=== PATIENT | female | born 1985 | race American Indian/Alaskan Native ===

== ENCOUNTER 2017-01-06 12:06 | Emergency (ER) | payer OTHER ==
[2017-01-06 12:27] VITALS: BP 147/107; PULSE 83; RESP 20; TEMP 98; O2SAT 100
--- NOTE | 2017-01-06 13:22 | C.PDOC ---
History Of Present Illness Pt c/o rash on body. Time Seen by Provider: 01/06/17 13:07 Chief Complaint (Nursing): Abnormal Skin Integrity History Per: Patient Onset/Duration Of Symptoms: Days (about 1 week) Current Symptoms Are (Timing): Still Present Quality Of Symptoms: Itching Severity: Moderate Additional History Per: Prior Records Past Medical History Reviewed: Historical Data, Nursing Documentation, Vital Signs Vital Signs: Last Vital Signs Temp 98.0 F 01/06/17 12:27 Pulse 83 01/06/17 12:27 Resp 20 01/06/17 12:27 BP 147/107 H 01/06/17 12:27 Pulse Ox 100 01/06/17 12:27 - Medical History PMH: No Chronic Diseases - [facility] Procedures OTHER SKIN & SUBQ I D (06/01/14) TETANUS TOXOID ADMINIST (06/01/14) Family History: States: Unknown Family Hx - Social History Hx Tobacco Use: Yes Hx Alcohol Use: Yes Hx Substance Use: No - Immunization History Hx Tetanus Toxoid Vaccination: Yes Hx Influenza Vaccination: No Hx Pneumococcal Vaccination: No Review Of Systems Except As Marked, All Systems Reviewed And Found Negative. Constitutional: Negative for: Fever, Weakness ENT: Negative for: Mouth Pain, Mouth Swelling, Throat Pain, Throat Swelling Respiratory: Negative for: Cough, Shortness of Breath Gastrointestinal: Negative for: Vomiting, Abdominal Pain Musculoskeletal: Negative for: Neck Pain Skin: Positive for: Rash, Lesions Neurological: Negative for: Weakness, Numbness, Seizures, Altered Mental Status , Headache Physical Exam - Physical Exam Appears: Non-toxic, No Acute Distress Skin: Normal Color, Warm, Dry, Rash (dry scaly patches on trunk. Abscent on palms and soles. ) Head: Atraumatic, Normacephalic Eye(s): bilateral: Normal Inspection, PERRL, EOMI Oral Mucosa: Moist, No Drooling, No Trismus Throat: Normal Neck: Normal ROM, Supple Lymphatic: No Adenopathy Cardiovascular: Rhythm Regular Respiratory: Normal Breath Sounds, No Accessory Muscle Use Gastrointestinal/Abdominal: Soft, No Tenderness Back: No CVA Tenderness Extremity: Normal ROM, No Pedal Edema Neurological/Psych: Oriented x3, Normal Speech, Normal Cognition, Normal Motor, Normal Sensation ED Course And Treatment O2 Sat by Pulse Oximetry: 100 Pulse Ox Interpretation: Normal Medical Decision Making Medical Decision Making: MO vs. Tinea. Disposition Counseled Patient/Family Regarding: Diagnosis, Need For Followup, Rx Given - Disposition Referrals: Shoshana Calvo MD [Non-Staff] - Disposition: HOME/ ROUTINE Disposition Time: 13:23 Condition: STABLE Additional Instructions: Follow up with your doctor. Return to the ER if you develop fever, mouth sores, lethargy, shortness of breath, worsening of symptoms or if you have any other concerns. Prescriptions: Clotrimazole 1% Cream [Lotrimin 1%] 1 applic EXT BID #1 tube Instructions: Pityriasis rosea (ED), Tinea Corporis (ED) - Clinical Impression Clinical Impression: Pityriasis rosea-like skin eruption
== END 2017-01-06 13:45 | disposition home or self-care (01) ==
LOC: C.ER 12:06
DX: L42 Pityriasis rosea (principal)

== ENCOUNTER 2017-11-26 15:59 | Emergency (ER) | payer OTHER ==
--- NOTE | 2017-11-26 19:30 | C.PDOC ---
History Of Present Illness 32 y/o female presents to the ER complaining of nausea, vomiting, and diarrhea which has been present for the past few days. Patient states that she is not able to tolerate PO. Patient reports that she also has a headache and she rates the pain 4/10 on the pain scale. Time Seen by Provider: 11/26/17 19:29 Chief Complaint (Nursing): GI Problem History Per: Patient History/Exam Limitations: no limitations Onset/Duration Of Symptoms: Hrs Severity: Moderate Past Medical History Reviewed: Historical Data, Nursing Documentation, Vital Signs Vital Signs: Last Vital Signs Temp 98.2 F 11/26/17 16:58 Pulse 78 11/26/17 16:58 Resp 18 11/26/17 16:58 BP 125/86 11/26/17 16:58 Pulse Ox 98 11/26/17 21:31 - Medical History PMH: Depression Other Surgeries: Hx of surgeries - [facility] Procedures OTHER SKIN & SUBQ I D (06/01/14) TETANUS TOXOID ADMINIST (06/01/14) Family History: States: No Known Family Hx - Social History Hx Tobacco Use: Yes Hx Alcohol Use: Yes Hx Substance Use: No - Immunization History Hx Tetanus Toxoid Vaccination: Yes Hx Influenza Vaccination: No Hx Pneumococcal Vaccination: No Review Of Systems Gastrointestinal: Positive for: Nausea, Vomiting, Diarrhea Neurological: Positive for: Headache Physical Exam - Physical Exam Appears: Non-toxic, No Acute Distress Skin: Warm Head: Normacephalic Eye(s): bilateral: Normal Inspection Oral Mucosa: Dry Gastrointestinal/Abdominal: Soft, Tenderness (mild midepigastric tenderness) Neurological/Psych: Oriented x3, Normal Speech, Normal Motor, Normal Sensation ED Course And Treatment - Laboratory Results Result Diagrams: 11/26/17 21:31 11/26/17 21:31 O2 Sat by Pulse Oximetry: 98 (RA) Pulse Ox Interpretation: Normal Progress Note: HCG and UA ordered. Reevaluation Time: 22:18 Reassessment Condition: Improved Disposition Counseled Patient/Family Regarding: Studies Performed, Diagnosis, Need For Followup, Rx Given - Disposition Referrals: [facility] [Outside] [facility] [Outside] Disposition: HOME/ ROUTINE Disposition Time: 19:29 Condition: FAIR Prescriptions: Ondansetron ODT [Zofran ODT] 1 odt PO BID PRN #6 odt PRN Reason: Nausea/Vomiting Instructions: Nausea and Vomiting, Adult Forms: [facility] (Slovenian), Work Excuse - Clinical Impression Clinical Impression: Abdominal pain, Nausea, Vomiting, Diarrhea - Scribe Statement The provider has reviewed the documentation as recorded by the Scribe Roberto Carlos Krishnan Provider Attestation: All medical record entries made by the Scribe were at my direction and personally dictated by me. I have reviewed the chart and agree that the record accurately reflects my personal performance of the history, physical exam, medical decision making, and the department course for this patient. I have also personally directed, reviewed, and agree with the discharge instructions and disposition.
[2017-11-26 20:31] LABS: HCG,QUALITATIVE URINE NEGATIVE (NEGATIVE)
[2017-11-26 20:33] LABS: SQUAMOUS EPITHIAL 6 /hpf (0-5); URINE BACTERIA RARE (<OCC); URINE BILIRUBIN NEGATIVE (NEGATIVE); URINE BLOOD NEGATIVE (NEGATIVE); URINE CLARITY Clear (Clear); URINE COLOR Yellow (YELLOW); URINE GLUCOSE (UA) NORMAL (Normal); URINE NITRATE NEGATIVE (NEGATIVE); URINE PROTEIN NEGATIVE (NEGATIVE); URINE UROBILINOGEN NORMAL mg/dL (0.2-1.0)
[2017-11-26 20:34] LABS: URINE LEUKOCYTE ESTERASE NEGATIVE Leu/uL (Negative)
[2017-11-26] MEDS ORDERED: Sodium Chloride 0.9% 1,000 ML IV ONE (20:36)
[2017-11-26] MEDS ORDERED: Sodium Chloride 0.9% 1,000 ML ONE (21:14)
[2017-11-26 21:44] LABS: BASO # 0.1 K/uL (0.0-0.2); EOS # 0.1 K/uL (0.0-0.7); EOS % 1.4 % (0.0-4.0); HEMOGLOBIN 12.8 g/dL (11.0-16.0); LYMPH # 3.4 K/uL (1.0-4.3); LYMPH % 42.4 % (20.0-40.0); MEAN CELL VOLUME 92.4 fL (81.0-99.0); MEAN CORPUSCULAR HEMOGLOBIN 31.2 pg (27.0-31.0); MEAN CORPUSCULAR HGB CONC 33.8 g/dL (33.0-37.0); MEAN PLATELET VOLUME 8.8 fL (7.2-11.7); MONO # 1.1 K/uL (0.0-0.8); NEUT # 3.3 K/uL (1.8-7.0); NEUT % 41.2 % (50.0-75.0); NRBC % 0.1 % (0.0-2.0); RBC 4.11 Mil/uL (3.80-5.20); RED CELL DISTRIBUTION WIDTH 13.4 % (11.5-14.5)
[2017-11-26 21:48] LABS: ALBUMIN 4.2 g/dL (3.5-5.0); CALCIUM 9.3 mg/dl (8.6-10.4); GFR AFRICAN-AMERICAN > 60; GFR NON-AFRICAN AMERICAN > 60; LIPASE 107 U/L (23-300)
[2017-11-26 22:00] LABS: ALT/SGPT 21 U/L (9-52); AST/SGOT 28 U/L (14-36); BLOOD UREA NITROGEN 11 mg/dL (7-17)
[2017-11-26 23:30] VITALS: BP 125/87; PULSE 71; RESP 20; TEMP 97.9; O2SAT 99
== END 2017-11-26 23:30 | disposition home or self-care (01) ==
LOC: C.ER 15:59
DX: R19.7 Diarrhea, unspecified (principal); R11.2 Nausea with vomiting, unspecified; R10.9 Unspecified abdominal pain; Z72.0 Tobacco use
CPT/HCPCS: 80053; 81001; 83690; 84703; 85025; 96361; 96374; 96375; 99283; J1885; J2405; J7040

== ENCOUNTER 2018-02-20 13:52 | Emergency (ER) | payer OTHER ==
[2018-02-20 14:05] VITALS: TEMP 99.6; BMI 29.2
--- NOTE | 2018-02-20 14:23 | C.PDOC ---
History Of Present Illness 32 year old female presents to the ED for evaluation of sore throat since yesterday. Patient reports vomiting and diarrhea this morning. Denies fever, sick contacts, or other associated symptoms. SORE THROAT SINCE YEST, VD THIS MORNING. NO FEVER, SICK CONTACTS. NO OTHER ASSOC SX EXAM NONTOXIC HEENT +PHARYNX ERYTHEMA W EXUDATES. NO DROOL, STRIDOR. ABD NEG GOOD TURGOR REMAINDER NEG Time Seen by Provider: 02/20/18 13:58 History Per: Patient History/Exam Limitations: no limitations Onset/Duration Of Symptoms: Hrs Current Symptoms Are (Timing): Still Present Additional History Per: Patient Past Medical History Reviewed: Historical Data, Nursing Documentation, Vital Signs Vital Signs: Last Vital Signs Temp 99.6 F 02/20/18 14:00 Pulse 72 02/20/18 14:43 Resp 18 02/20/18 14:43 BP 118/70 02/20/18 14:43 Pulse Ox 99 02/20/18 15:22 - Medical History PMH: Depression Surgical History: No Surg Hx - [facility] Procedures OTHER SKIN & SUBQ I D (06/01/14) TETANUS TOXOID ADMINIST (06/01/14) Family History: States: Unknown Family Hx - Social History Hx Tobacco Use: Yes Hx Alcohol Use: Yes Hx Substance Use: No - Immunization History Hx Tetanus Toxoid Vaccination: Yes Hx Influenza Vaccination: No Hx Pneumococcal Vaccination: No Review Of Systems Constitutional: Negative for: Fever, Chills ENT: Positive for: Throat Pain Gastrointestinal: Positive for: Vomiting, Diarrhea Physical Exam - Physical Exam Appears: Non-toxic, No Acute Distress Skin: Normal Color, Warm, Dry, Other (good turgor ) Head: Atraumatic, Normacephalic Eye(s): bilateral: Normal Inspection Ear(s): Bilateral: Normal Nose: Normal, No Discharge Oral Mucosa: Moist Throat: Erythema, Exudate, No Drooling, No Other (stridor ) Neck: Supple Chest: Symmetrical, No Deformity, No Tenderness Cardiovascular: Rhythm Regular, No Murmur Respiratory: Normal Breath Sounds, No Rales, No Rhonchi, No Wheezing Gastrointestinal/Abdominal: Soft, No Tenderness, No Guarding, No Rebound Extremity: Normal ROM, Capillary Refill (less than 2 seconds ) Neurological/Psych: Oriented x3, Normal Speech, Normal Cognition ED Course And Treatment O2 Sat by Pulse Oximetry: 99 (on RA) Pulse Ox Interpretation: Normal Progress Note: Motrin PO, Tylenol PO and Zofran PO administered. Disposition Counseled Patient/Family Regarding: Diagnosis, Need For Followup, Rx Given - Disposition Referrals: [facility] [Outside] [facility] [Outside] Disposition: HOME/ ROUTINE Disposition Time: 14:19 Condition: GOOD Prescriptions: Cephalexin [cephalexin] 500 mg PO BID #20 cap Instructions: Sore Throat, Adult (DC), Viral Gastroenteritis, Adult (DC) Forms: Work Excuse - Clinical Impression Clinical Impression: Acute pharyngitis, Vomiting and diarrhea - Scribe Statement The provider has reviewed the documentation as recorded by the Scribe (Jessica Patricia) Provider Attestation: All medical record entries made by the Scribe were at my direction and personally dictated by me. I have reviewed the chart and agree that the record accurately reflects my personal performance of the history, physical exam, medical decision making, and the department course for this patient. I have also personally directed, reviewed, and agree with the discharge instructions and disposition. Addendum Addendum: 02/20/18 15:23 PS UNABLE TO FILL AZITHROMYCIN RX. PER [facility], UNABLE TO FILL RX DUE TO PT'S INSURANCE DENIAL. PT OFFERED KEFLEX, RISKS BENEFITS DISCUSSED LOW LIKELIHOOD ALLERGIC REACTION. OFFERED CLINDAMYCIN AND ADVISED OF POTENTIAL FOR MED SIDE EFFECTS INCLUDING GI SX. PT VOICES VERBAL UNDERSTANDING, PREFERS KEFLEX. NEW RX GIVEN.
[2018-02-20 14:44] VITALS: BP 118/70; PULSE 72; RESP 18
[2018-02-20 15:22] VITALS: O2SAT 99
== END 2018-02-20 14:43 | disposition home or self-care (01) ==
LOC: C.ER 13:52
DX: J02.9 Acute pharyngitis, unspecified (principal); R11.10 Vomiting, unspecified; R19.7 Diarrhea, unspecified

== ENCOUNTER 2018-07-28 16:34 | Emergency (ER) | payer OTHER ==
[2018-07-28 16:40] VITALS: BMI 29.9
[2018-07-28 16:41] VITALS: BP 132/89; O2SAT 97
--- NOTE | 2018-07-28 16:49 | C.PDOC ---
History Of Present Illness 33 year old female presents to the ED for evaluation of glass stuck in her foot s/p injury 2 days ago. Patient reports a piece of glass fell onto her foot, cutting the left side of her ankle and the 2nd toe. She presents to rule out infection and retained glass. Last Tetanus vaccination. Denies other injuries, fever, numbness, tingling, and any other associated symptoms. Time Seen by Provider: 07/28/18 16:39 Chief Complaint (Nursing): Lower Extremity Problem/Injury History Per: Patient History/Exam Limitations: no limitations Onset/Duration Of Symptoms: Days Current Symptoms Are (Timing): Still Present Past Medical History Reviewed: Historical Data, Nursing Documentation, Vital Signs Vital Signs: Last Vital Signs Temp 98.0 F 07/28/18 16:40 Pulse 114 H 07/28/18 16:40 Resp 20 07/28/18 16:40 BP 132/89 07/28/18 16:40 Pulse Ox 97 07/28/18 16:40 - Medical History PMH: Depression - [facility] Procedures OTHER SKIN & SUBQ I D (06/01/14) TETANUS TOXOID ADMINIST (06/01/14) Family History: States: Unknown Family Hx - Social History Hx Tobacco Use: Yes Hx Alcohol Use: Yes Hx Substance Use: No - Immunization History Hx Tetanus Toxoid Vaccination: Yes Hx Influenza Vaccination: No Hx Pneumococcal Vaccination: No Review Of Systems Constitutional: Negative for: Fever, Other (other injuries) Skin: Positive for: Other (laceration to the left side of the ankle. laceration to the 2nd toe. ) Neurological: Negative for: Weakness, Numbness, Incoordination Physical Exam - Physical Exam Appears: Well, Non-toxic Skin: Warm, Dry, Other (1 cm laceration to the lateral malleolous: well healing. no discharge. no erythema. 0.5 cm laceration to the underside of the right 2nd toe. ) Head: Atraumatic, Normacephalic Eye(s): bilateral: Normal Inspection Extremity: Normal ROM (x4), No Tenderness, No Calf Tenderness, Capillary Refill (less than 2 seconds.), No Deformity Pulses: Left Dorsalis Pedis: Normal, Right Dorsalis Pedis: Normal Neurological/Psych: Oriented x3, Normal Speech, Normal Motor, Normal Sensation, Normal Reflexes ED Course And Treatment O2 Sat by Pulse Oximetry: 97 (RA) Pulse Ox Interpretation: Normal - Other Rad LT Ankle X-ray X-Ray: Viewed By Me, Read By Radiologist Interpretation: FINDINGS: BONES: No acute fracture. JOINTS: Ankle mortise maintained. SOFT TISSUES: Normal. OTHER FINDINGS: None. IMPRESSION: No demonstrated fracture, dislocation or evidence of radiopaque foreign body. LT Foot X-ray X-Ray: Viewed By Me, Read By Radiologist Interpretation: FINDINGS: BONES: No acute fracture. JOINTS: Ankle mortise maintained. SOFT TISSUES: Normal. OTHER FINDINGS: None. IMPRESSION: No demonstrated fracture, dislocation or evidence of radiopaque foreign body. Medical Decision Making Medical Decision Making: Plan: -LF X-ray Tetanus LF Ankle X-ray LT Foot X-ray No foreign body appreciated near L lateral malleolus or 2nd toe. Instructed that if there was foreign body it would work its way out. Tetanus updated and wound cleaned. Wounds appear well healing and not infected Disposition - Disposition Disposition: HOME/ ROUTINE Disposition Time: 17:55 Condition: GOOD Additional Instructions: Follow-up with PMD within 2 days. Return to ED if condition worsens. Keep wound clean. Instructions: Toe Injury Forms: [facility] (Turkmen), Work Excuse - Clinical Impression Clinical Impression: Foot laceration - Scribe Statement The provider has reviewed the documentation as recorded by the Scribe (Christen Sanderson) Provider Attestation: All medical record entries made by the Scribe were at my direction and personally dictated by me. I have reviewed the chart and agree that the record accurately reflects my personal performance of the history, physical exam, medical decision making, and the department course for this patient. I have also personally directed, reviewed, and agree with the discharge instructions and disposition.
[2018-07-28 16:50] VITALS: RESP 18; TEMP 98
[2018-07-28] MEDS ORDERED: Tdap Vaccine 0.5 ml Vial (10-64 yrs) IM ONE ×2 (16:58→17:07)
[2018-07-28] MEDS ORDERED: Bacitracin 500 Units/gm Oint Foilpak UD TOP ONE (17:54)
[2018-07-28] MEDS ORDERED: Bacitracin 500 Units/gm Oint Foilpak UD ONE (18:02)
[2018-07-28 18:05] VITALS: PULSE 92
--- NOTE | 2018-07-28 18:19 | RAD ---
Date of service: 07/28/2018 PROCEDURE: Left Ankle Radiographs. Left Foot Radiographs. HISTORY: glass fell, eval for fb COMPARISON: None. FINDINGS: BONES: No acute fracture. JOINTS: Ankle mortise maintained. SOFT TISSUES: Normal. OTHER FINDINGS: None. IMPRESSION: No demonstrated fracture, dislocation or evidence of radiopaque foreign body.
== END 2018-07-28 18:05 | disposition home or self-care (01) ==
LOC: C.ER 16:34
DX: S91.312A Laceration without foreign body, left foot, initial encounter (principal); W25.XXXA Contact with sharp glass, initial encounter; Z23 Encounter for immunization; Z72.0 Tobacco use

== ENCOUNTER 2018-09-03 10:35 | Emergency (ER) | payer OTHER ==
[2018-09-03 10:36] VITALS: BMI 29.9
[2018-09-03] MEDS ORDERED: Sodium Chloride 0.9% 1,000 ML IV ONE (11:31)
--- NOTE | 2018-09-03 11:31 | C.PDOC ---
History Of Present Illness 33 year old female with no PMH presents to the ED for evaluation of nasal congestion, nausea, and diarrhea x 3 days. The patient reports 1 episode of vomiting 3 days ago, and 2-3 episodes of non-bloody brown diarrhea over the last 3 days. She admits to taking an unknown OTC medication for the nasal congestion without relief. Denies fever, cough, sore throat, recent antibiotics, flu vaccine, abdominal pain, back pain, decrease in appetite, urinary symptoms, numbness, tingling, headache, neck pain, and any other associated symptoms. Chief Complaint (Nursing): GI Problem History Per: Patient History/Exam Limitations: no limitations Onset/Duration Of Symptoms: Days (x1) Current Symptoms Are (Timing): Still Present Recent travel outside of the [place]: No Past Medical History Reviewed: Historical Data, Nursing Documentation, Vital Signs Vital Signs: Last Vital Signs Temp 98.4 F 09/03/18 10:37 Pulse 84 09/03/18 10:37 Resp 8 L 09/03/18 10:37 BP 144/94 H 09/03/18 10:37 Pulse Ox 100 09/03/18 10:37 - Medical History PMH: Depression - [facility] Procedures OTHER SKIN & SUBQ I D (06/01/14) TETANUS TOXOID ADMINIST (06/01/14) Family History: States: Unknown Family Hx - Social History Hx Tobacco Use: Yes Hx Alcohol Use: Yes Hx Substance Use: No - Immunization History Hx Tetanus Toxoid Vaccination: Yes Hx Influenza Vaccination: No Hx Pneumococcal Vaccination: No Review Of Systems Except As Marked, All Systems Reviewed And Found Negative. Constitutional: Positive for: Chills. Negative for: Fever, Other (decrease in appetite. ) ENT: Positive for: Nose Congestion. Negative for: Throat Pain (sore. ) Respiratory: Positive for: Other (tight chest. ). Negative for: Cough Gastrointestinal: Positive for: Nausea, Vomiting, Diarrhea. Negative for: Abdominal Pain Genitourinary: Negative for: Dysuria, Frequency, Incontinence Musculoskeletal: Negative for: Back Pain Neurological: Negative for: Weakness, Numbness Physical Exam - Physical Exam Appears: Well, Non-toxic, No Acute Distress Skin: Normal Color, Warm, Dry Head: Atraumatic, Normacephalic Eye(s): bilateral: Normal Inspection Ear(s): Bilateral: Normal Nose: Normal, No Flaring Oral Mucosa: Moist Throat: Normal, No Erythema, No Exudate Neck: Normal ROM, Supple Chest: Symmetrical, No Deformity Cardiovascular: Rhythm Regular, No Murmur Respiratory: Normal Breath Sounds, No Rales, No Rhonchi, No Wheezing Gastrointestinal/Abdominal: Normal Exam, Soft, No Tenderness Extremity: Normal ROM (x4) Neurological/Psych: Oriented x3, Normal Speech, Normal Cognition ED Course And Treatment - Laboratory Results Result Diagrams: 09/03/18 11:55 09/03/18 11:55 O2 Sat by Pulse Oximetry: 100 (RA) Pulse Ox Interpretation: Normal - Other Rad ABD Obstructive X-ray X-Ray: Viewed By Me, Read By Radiologist Interpretation: FINDINGS: CHEST: Lungs: The lungs are well inflated and clear. Cardiovascular: Normal size heart. No pulmonary vascular congestion. No aortic atherosclerotic calcification present. Pleura: No pleural fluid. No pneumothorax. Other findings: None. ABDOMEN AND PELVIS: Bowel: The bowel gas pattern is nonobstructive and nonspecific. No evidence of mechanical obstruction. Free air: None. Bones: Unremarkable. Other findings: None. IMPRESSION: Nonspecific nonobstructive bowel gas pattern. Clear lungs. Medical Decision Making Medical Decision Making: Initial plan: -Obstructive series CBC, CMP Zofran Urinalysis Progress/Update: Obstructive series negative for any acute findings Labwork unremarkable Patient feels much better after fluid infusion. Requesting to be discharged home. Offered to be tested for flu, patient refuses, states she will return if she gets worse. Case discussed with ED attending, Dr. Whelan, who recommends Zofran prescription for home. Plan of care discussed with patient, and strict instructions given regarding prescriptions, importance of follow up, and signs to return to Emergency Department, to include fever, chills, abdominal pain, or any other new/worsening symptoms. Patient verbalizes understanding of discussion. Patient A&Ox3, ambulating with steady gait, stable for discharge home. Disposition - Disposition Referrals: [facility] [Outside] Disposition: HOME/ ROUTINE Disposition Time: 14:00 Condition: IMPROVED Additional Instructions: Take zofran every 8 hours as needed for nausea Followup with primary doctor within 2 days Return to ER with new/worsening symptoms Prescriptions: Ondansetron ODT [Zofran ODT] 4 mg PO Q8H PRN #6 odt PRN Reason: Nausea/Vomiting Instructions: Diarrhea in Adolescents and Adults, Nausea and Vomiting, Adult (DC) Forms: [facility] (Danish), Work Excuse - Clinical Impression Clinical Impression: Diarrhea, Nausea & vomiting - PA / [employer] / Resident Statement MD/DO has reviewed & agrees with the documentation as recorded. - Scribe Statement The provider has reviewed the documentation as recorded by the Scribe (Christen Sanderson) All medical record entries made by the Scribe were at my direction and personally dictated by me. I have reviewed the chart and agree that the record accurately reflects my personal performance of the history, physical exam, medical decision making, and the department course for this patient. I have also personally directed, reviewed, and agree with the discharge instructions and disposition.
[2018-09-03 12:05] LABS: BASO # 0.1 K/uL (0.0-0.2); BASO % 1.1 % (0.0-2.0); EOS # 0.1 K/uL (0.0-0.7); EOS % 1.5 % (0.0-4.0); HEMOGLOBIN 13.8 g/dL (11.0-16.0); LYMPH # 1.4 K/uL (1.0-4.3); LYMPH % 30.9 % (20.0-40.0); MEAN CORPUSCULAR HEMOGLOBIN 31.7 pg (27.0-31.0); MEAN CORPUSCULAR HGB CONC 33.3 g/dL (33.0-37.0); MONO # 0.5 K/uL (0.0-0.8); MONO % 10.6 % (0.0-10.0); NEUT # 2.6 K/uL (1.8-7.0); NEUT % 55.9 % (50.0-75.0); NRBC % 0.1 % (0.0-2.0); RBC 4.35 Mil/uL (3.80-5.20); RED CELL DISTRIBUTION WIDTH 14.5 % (11.5-14.5); WHITE BLOOD COUNT 4.6 K/uL (4.8-10.8)
[2018-09-03 12:09] LABS: MEAN CELL VOLUME 95.2 fL (81.0-99.0)
[2018-09-03 12:14] LABS: SQUAMOUS EPITHIAL 21 /hpf (0-5); URINE BACTERIA RARE (<OCC); URINE BILIRUBIN 1+ (NEGATIVE); URINE BLOOD 1+ (NEGATIVE); URINE CLARITY Hazy (Clear); URINE COLOR Yellow (YELLOW); URINE GLUCOSE (UA) NORMAL (Normal); URINE HYALINE CAST 0-2 /lpf (0-2); URINE LEUKOCYTE ESTERASE NEG Leu/uL (Negative); URINE PROTEIN 1+ mg/dL (NEGATIVE)
[2018-09-03 12:16] LABS: ALB/GLOB RATIO 1.1 (1.0-2.1); ALBUMIN 4.5 g/dL (3.5-5.0); ALT/SGPT 30 U/L (9-52); AST/SGOT 34 U/L (14-36); BLOOD UREA NITROGEN 4 mg/dL (7-17); CALCIUM 9.1 mg/dl (8.6-10.4); GFR NON-AFRICAN AMERICAN > 60; LIPASE 62 U/L (23-300)
[2018-09-03 14:35] VITALS: BP 118/83; PULSE 79; RESP 16; TEMP 98.9
--- NOTE | 2018-09-03 15:11 | RAD ---
Date of service: 09/03/2018 PROCEDURE: Radiographs of the chest and abdomen (obstructive series) HISTORY: abdominal pain, diarrhea COMPARISON: No prior. TECHNIQUE: AP radiograph of the chest, with upright and supine radiographs of the abdomen. FINDINGS: CHEST: Lungs: The lungs are well inflated and clear. Cardiovascular: Normal size heart. No pulmonary vascular congestion. No aortic atherosclerotic calcification present Pleura: No pleural fluid. No pneumothorax. Other findings: None. ABDOMEN AND PELVIS: Bowel: The bowel gas pattern is nonobstructive and nonspecific. No evidence of mechanical obstruction. Free air: None. Bones: Unremarkable. Other findings: None. IMPRESSION: Nonspecific nonobstructive bowel gas pattern. Clear lungs.
[2018-09-03 15:17] VITALS: O2SAT 100
== END 2018-09-03 14:35 | disposition home or self-care (01) ==
LOC: C.ER 10:35
DX: R19.7 Diarrhea, unspecified (principal); R11.2 Nausea with vomiting, unspecified; Z72.0 Tobacco use
CPT/HCPCS: 74022; 80053; 81001; 83690; 85025; 87086; 87804; 96374; 99285; J2405; J7030

== ENCOUNTER 2019-02-23 21:38 | Emergency (ER) | payer OTHER ==
[2019-02-23 21:38] VITALS: BMI 29.9
[2019-02-23 22:06] VITALS: BP 109/82; PULSE 90; RESP 20; TEMP 98.6; O2SAT 100
--- NOTE | 2019-02-23 22:19 | C.PDOC ---
History Of Present Illness 33 yo female presents to the ED complaining of pain to the right upper back/shoulder area. Patient states pain started this morning. Describes pain as an ache, constant and nonradiating. Pain is worsened with movement and touching the area and it is relieved with rest. States if she touches the area "it feels hard and swollen." Explains she took naprosyn which made her tired but did not help her pain. Patient denies chest pain or SOB. No numbness, tingling, neck pain or headache. Denies weakness. 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 She is right handed. No other complaints at this time. Time Seen by Provider: 02/23/19 22:09 Chief Complaint (Nursing): Upper Extremity Problem/Injury History Per: Patient History/Exam Limitations: no limitations Past Medical History Reviewed: Historical Data, Nursing Documentation Vital Signs: Last Vital Signs Temp 98.6 F 02/23/19 21:47 Pulse 90 02/23/19 21:47 Resp 20 02/23/19 21:47 BP 109/82 02/23/19 21:47 Pulse Ox 100 02/23/19 21:47 Primary Care Provider: Non [facility] Provider, - Medical History PMH: Depression - [facility] OTHER SKIN & SUBQ I D (06/01/14) TETANUS TOXOID ADMINIST (06/01/14) Family History: States: Unknown Family Hx - Social History Hx Tobacco Use: Yes Hx Alcohol Use: Yes Hx Substance Use: No - Immunization History Hx Tetanus Toxoid Vaccination: Yes Hx Influenza Vaccination: No Hx Pneumococcal Vaccination: No Review Of Systems Except As Marked, All Systems Reviewed And Found Negative. Constitutional: Negative for: Fever, Chills Cardiovascular: Negative for: Palpitations, Edema, Light Headedness Respiratory: Negative for: Cough, Shortness of Breath Gastrointestinal: Negative for: Vomiting Genitourinary: Negative for: Dysuria Skin: Negative for: Rash Physical Exam - Physical Exam Appears: Well, Non-toxic, No Acute Distress Skin: Normal Color, Warm, Dry Head: Atraumatic Eye(s): bilateral: Normal Inspection Oral Mucosa: Moist Neck: Normal, No Decreased ROM, No Midline Cervical Tenderness, No Paracervical Tenderness Chest: Symmetrical Cardiovascular: Rhythm Regular Respiratory: Normal Breath Sounds Back: No Vertebral Tenderness, No Decreased ROM, Muscle Spasm (and tenderness to the right trapezius ), No Paraspinal Tenderness Extremity: Normal ROM, No Tenderness, No Swelling Extremity: Bilateral: Atraumatic Pulses: Left Radial: Normal, Right Radial: Normal DTR: Bicep (R): 2+, Bicep (L): 2+ Neurological/Psych: Oriented x3, Normal Speech, Normal Cognition, Normal Motor, Normal Sensation Gait: Steady ED Course And Treatment O2 Sat by Pulse Oximetry: 100 Medical Decision Making Medical Decision Makinyo right hand dominant female presents to the ED with RUE/right upper back bear n. Findings c/w muscle spasm. Will treat with NSAID and flexeril. Nontoxic appearing. FROM of the RUE. Lungs clear and heart regular. No neuro deficits on exam, Will follow-up with PMD. Will return with any worsening symptoms. Disposition Counseled Patient/Family Regarding: Diagnosis, Need For Followup, Rx Given - Disposition Referrals: Non [facility] Provider, [Non-Staff] - Reid Perkins III, MD [Staff Provider] - Disposition: HOME/ ROUTINE Disposition Time: 22:25 Condition: GOOD Additional Instructions: Alternate between cold and warm compresses to area of pain. Follow-up with PMD and orthopedist. Return if symptoms worsen or persist. Prescriptions: Cyclobenzaprine [Cyclobenzaprine HCl] 10 mg PO Q8 PRN #12 tab PRN Reason: Muscle Spasm Ibuprofen [Motrin Tab] 800 mg PO TID #20 tab Instructions: Muscle Spasms (DC) Forms: [facility] (Czech), Work Excuse, General Discharge Instructions Print Language: KOREAN - Clinical Impression Clinical Impression: Muscle spasm of back - PA / TRAILER TECHNICIAN / Resident Statement MD/DO has reviewed & agrees with the documentation as recorded.
== END 2019-02-23 22:41 | disposition home or self-care (01) ==
LOC: C.ER 21:38
DX: M62.830 Muscle spasm of back (principal); Z72.0 Tobacco use
CPT/HCPCS: 96372; 99284; J1885